=== PATIENT | female | born 1945 | race Caucasian/White ===

== ENCOUNTER → 2024-08-22 08:42 | Outpatient (REF) | payer MEDICARE, OTHER, SELFPAY | LOC: MRI 3T 08:42 | DX: M25.551 Pain in right hip (principal) | CPT/HCPCS: 73721 ==

== ENCOUNTER 2025-10-02 07:14 | Emergency (ER) | payer MEDICARE, OTHER, SELFPAY ==
[2025-10-02 07:27] VITALS: BP 135/92
[2025-10-02 07:37] VITALS: BMI 21.8
--- NOTE | 2025-10-02 08:20 | ED.GENMED ---
History of Present Illness
General
Chief Complaint: Musculo-Skeletal Complaint
Source: patient
Time Seen by Provider: 10/02/25 07:46
History of Present Illness
History of Present Illness:
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
persists but now with worsening pain and edema to the entire left leg below the knee, patient concern for DVT. She notes that she has been in physical therapy for her left ankle issue which has gotten better and that the physical therapist had been
working with both of her knees secondary to some chronic knee pain but states this pain is different. She denies any traumatic injuries, focal weakness or numbness, fevers, overlying erythema or any other injuries/concerns. She did not take
anything for her symptoms today but has taken Tylenol in the past.
Past History
Past History
ED Past Medical History: Hypothyroidism and Other (Pulmonary embolism)
ED Past Surgical History: Appendectomy, Gynecological and Orthopedic
Social History
Tobacco: Former smoker
Alcohol: Occasional
Drug: None
Personal:
Living: with family
Family History
Family History: Other
Review of Systems
Review of Systems
All Other Systems: ROS reviewed and negative except as documented in HPI and ROS
Phy Exam
Physical Exam
Physical Exam:
GENERAL: Alert , in no apparent distress
HEAD: Normocephalic atraumatic
EYE: conjunctiva clear
NECK: Supple
ENT: o/p clr, mmm.
CARDIAC: Regular rate and rhythm
LUNGS: Clear breath sounds bilaterally, no acute respiratory distress, no wheezes/rales/rhonchi
NEUROLOGICAL: Alert and oriented
SKIN: Warm and dry, skin intact.
MUSCULOSKELETAL: well perfused. Soft tissue swelling around the left knee but no joint effusion appreciated, patient allows for active and passive flexion and extension of the knee but this does cause her discomfort. She has easily palpable pedal
and tibial pulses. Cap refills less than 2 seconds and sensation is grossly intact to light touch. There is also edema of the left gastrocnemius compared to the right.
PSYCH: Normal and appropriate interaction.
Scores
Heart Failure Risk
Heart Failure Risk Score: Not Applicable
Heart Score for Chest Pain Patients
STEMI patient?: Not applicable
Withdrawal Assessment of Alcohol
Withdrawal Assessment Completed?: Not applicable
Course
Orders/Labs/Results
Orders:
Orders
10/02/25 07:42
CR Knee - Left 4 Or More View* Urgent
Comment:
Reason For Exam: pain/weakness
US Periph Venous LOWER Ext LT Urgent
Comment:
Reason For Exam: swelling/calf pain
Vital Signs
Initial and Last Documented VS:
Initial Vital Signs
Temp Pulse Resp BP Pulse Ox
98.2 F 79 18 135/92 99
10/02/25 07:27 10/02/25 07:27 10/02/25 07:27 10/02/25 07:27 10/02/25 07:27
Last Documented Vital Signs
Temp Pulse Resp BP Pulse Ox
98.2 F 61 18 163/83 99
10/02/25 07:27 10/02/25 08:59 10/02/25 07:27 10/02/25 08:59 10/02/25 08:24
MDM/Problems Addressed
Differential Diagnosis Includes:
DVT
Peripheral vascular disease
Peripheral arterial disease
Osteoarthritis
Less concern for septic joint
MDM/Problems Addressed:
80-year-old female presenting to the ER for evaluation of nontraumatic left knee pain that started on Saturday, symptoms have progressed to now having edema and pain throughout the left lower extremity below the left knee. No outward sign of
infection, no risk factors for infection. Patient does have risk factors for DVT given her history of previous PE that was unprovoked in the past. Will check an ultrasound of the left lower extremity as well as x-ray of the left knee. Patient
does have an appointment scheduled with orthopedics for this coming Saturday.
*Radiology
Radiology exam reviewed: preliminary read by ED provider and radiology read reviewed
*Pulse Oximetry
SaO2: 99
Oxygen Mode of Delivery: Room air
Patient hypoxic: no
*Critical Care Note
Total Time (30-74mins, 75-104mins- exclusive of procedures): Not Applicable
Patient Management
Escalation/DeEscalation of care consider admission/obs:
Patient's ultrasound is negative for any DVT. Her x-ray does reveal significant degenerative changes to the left knee. I suspect this is the main cause for patient's current symptoms. She will follow-up with orthopedics as scheduled on Saturday.
Aware of return precautions to the ER.
ED Attending Note
-
Portions of this chart may have been created with voice recognition software.� Occasional wrong word or��sound alike� substitutions may have occurred due to the inherent limitations of voice recognition software.
Discharge Plan
Departure
Patient Disposition: Home (Routine Discharge)
Date of Disposition: 10/02/25
Time of Disposition: 09:07
Patient with high blood pressure during this ER visit?: Yes
Discharge Problem:
Knee pain, left
Instructions: Knee pain - ED (DC)
Prescriptions:
No Action
levothyroxine 50 MCG tablet
50 mcg PO HS
fluticasone propionate 1 SPRAY spray,suspension
1 spray intranasal DAILYPRN PRN (Reason: nasal congestion)
lidocaine [LMX 4] 1 APPLIC cream
1 applic topical DAILYPRN PRN (Reason: lower back/hip pain)
albuterol sulfate 1 PUFF HFA aerosol inhaler
2 puff inhalation R Q4HPRN PRN (Reason: shortness of breath)
cyclobenzaprine 5 MG tablet
5 mg PO Q8HPRN PRN (Reason: muscle spasms)
acetaminophen 325 MG tablet
650 mg PO Q6HPRN PRN (Reason: mild pain/ fever>100.5F) 0RF
apixaban [Eliquis] 5 MG tablet
5 mg PO BID Qty: 60 0RF
Referrals:
DULCE MCNEIL MD [Family Provider, Family Practice]
Interventions
Interventions:
*Risk Screen - Suicide Last Done: 10/02/25 07:27
*General Assessment Last Done: 10/02/25 07:27
*Neglect/Abuse Screening Last Done: 10/02/25 07:37
*ED- Fall Risk Assessment Last Done: 10/02/25 07:37
*ED COVID-19 Vaccine History Last Done: 10/02/25 07:27
*ED Influenza Vaccine History Last Done: 10/02/25 07:27
*Nursing Disposition Last Done: 10/02/25 09:29
ED-Musculoskeletal Assessment Last Done: 10/02/25 07:39
Discharge Date and Time
Discharge Date/Time: 10/02/25 09:30
Print Language: AZERI
[2025-10-02 08:59] VITALS: BP 163/83
== END 2025-10-02 09:30 | disposition home or self-care (01) ==
LOC: EMR 07:14
PROVIDERS: EMERGENCY PHYSICIAN Emergency Medicine; FAMILY PHYSICIAN Student in an Organized Health Care Education/Training Program; REFERRING PHYSICIAN Orthopaedic Surgery
DX: M25.562 Pain in left knee (principal); R22.42 Localized swelling, mass and lump, left lower limb; E06.3 Autoimmune thyroiditis; Z86.711 Personal history of pulmonary embolism; Z87.891 Personal history of nicotine dependence
CPT/HCPCS: 99284; 73564; 93971